=== PATIENT | male | born 1990 | race Caucasian/White ===

== ENCOUNTER 2018-07-02 21:13 | Emergency (ER) | payer SELFPAY, OTHER ==
[2018-07-03] MEDS: KETOROLAC 30 MG INJ IV (00:09)
[2018-07-03] MEDS: CLINDAMYCIN 600 MG/D5W (PMX) 50 ML IVPB (00:23)
== END 2018-07-03 01:36 | disposition home or self-care (01) ==
LOC: FTE 21:13
DX: L03.115 Cellulitis of right lower limb (principal)
CPT/HCPCS: 96374; 96375; 99284-25; J1885